=== PATIENT | male | born 2000 | race Caucasian/White ===

== ENCOUNTER 2020-06-26 11:25 | Emergency (ER) | payer BC, SELFPAY ==
[2020-06-26 11:40] VITALS: BP 147/76; PULSE 71; RESP 16; TEMP 36.9; O2SAT 96; BMI 35.9
--- NOTE | 2020-06-26 12:01 | HMH.EDUTC ---
[facility] [place] Disposition Clinical Impression: Viral URI with cough, Encounter for laboratory testing for COVID-19 virus Disposition: Home, Self-Care Condition on Discharge: Good Instructions: DI for COVID-19 (Suspected or Confirmed ), Coronavirus Disease 2019, Preventing the Spread of Coronavirus Discharge Instructions Additional Instructions: *Monitor Temp, Over the counter Motrin or Tylenol as directed/as needed Tylenol every 4 hours and Motrin every 6 hours (as long as your family doctor has told you that you can take it) for fever or pain. and straight to ER if unable to lower temp less than 101.0 after medication given *Warm salt water gargles may help to soothe the throat *Throat Lozenges *Warm fluids like tea with honey may help to soothe the throat *Sleep elevated *Humidifier/Vaporizer Your throat swab was sent for culture. Those results are typically sent to your primary care. Be sure to follow up in 2-3 days with your family doctor/primary care physician if no improvement so they can review those result and treat if necessary. If you don?t have a primary care doctor, I recommend you get one but in the mean time, you will have to return to a walk in clinic Follow up IMMEDIATELY for new or worsening symptoms or no Noticeable improvement over the next 48-72 hours. 911 for difficulty breathing or swallowing You were tested for today for COVID19 your test result should be back in the next 24-48 hours, you may call to the [facility] to see if your test results are back in the next 48 hours [phone] [facility] hours are 9am-9pm You was given a handout with instructions for Self Quarantine and Self isolation for while you wait on test results and what to do if they are positive If you are positive the Health Dept will be contacting you also Prescriptions: Brompheniramine/Pseudoephed/Dm [Bromfed Dm Cough Syrup] 5 - 10 ml PO Q46H PRN #150 ml PRN Reason: Cough Transmission Status: Pending to [facility] Referrals: PCP,No [Primary Care Provider] - As needed Forms: Work/School Release Time of Disposition: 12:14 Medical Decision Making - Dre Inquiry Pt receiving controlled substance: No Dre was queried for this patient: No Vital Signs: 06/26/20 11:40 Temperature 98.5 F Temperature Source Oral Pulse Rate [Left] 71 Respiratory Rate 16 Blood Pressure [Right Arm] 147/76 H Blood Pressure Mean [Right Arm] 99 Blood Pressure Source [Right Arm] Automatic Cuff Blood Pressure Position [Right Arm] Sitting 02 Sat by Pulse Oximetry 96 Oxygen Delivery Method Room Air - Lab Data Lab results reviewed: Yes: I reviewed the patient's lab results. Orders (Tests/Meds): ORDERS Category Date Time Status Covid-19 Nasal PCR ([facility]) Routine Lab 06/26/20 11:[address] [facility] [place] HPI - General Stated complaint: Covid Test; cough; sore thorat;SOB Time Seen by Provider: 06/26/20 12:01 Mode of Arrival: Ambulatory Source of Information: Patient Limitations: No Limitations Description of Symptoms (Recalled from Triage Doc. by RN): pt started having a sore throat two days ago. followed by chills, generalized weakness and muscle aches and LAUREANO. pt started having N/V today. 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
[2020-06-26 12:15] VITALS: BP 143/73; PULSE 68; RESP 16; TEMP 37
[2020-06-26 21:03] LABS: UTC Strep Screen (Rapid) Negative (Negative)
== END 2020-06-26 12:18 | disposition home or self-care (01) ==
PROVIDERS: Emergency Provider Nurse Practitioner
DX: Z20.822 Contact with and (suspected) exposure to COVID-19 (principal); J06.9 Acute upper respiratory infection, unspecified
CPT/HCPCS: 87880; 99202; G0463; U0003

== ENCOUNTER 2020-10-09 10:59 | Emergency (ER) | payer BC, SELFPAY ==
[2020-10-09 11:00] VITALS: BP 149/80; PULSE 84; RESP 19; TEMP 37.1; O2SAT 99; BMI 36.9
--- NOTE | 2020-10-09 11:15 | HMH.EDUTC ---
[facility] [place] Clinical Impression: Strep pharyngitis Bilateral otitis media Qualifiers: Otitis media type: suppurative Chronicity: acute Recurrence: non-recurrent Spontaneous tympanic membrane rupture: without spontaneous rupture Qualified Code(s): H66.003 - Acute suppurative otitis media without spontaneous rupture of ear drum, bilateral Disposition: Home, Self-Care Condition on Discharge: Good Instructions: DI for Strep Throat Additional Instructions: Complete antibiotics as prescribed. Replace toothbrush. Ibuprofen for pain or fever. Gatorade slushies or saltwater gargles for swelling. Referrals: Provider,Referral, [Primary Care Provider] - Time of Disposition: 11:23 Medical Decision Making - Dre Inquiry Pt receiving controlled substance: No Vital Signs: 10/09/20 11:00 Temperature 98.7 F Temperature Source Oral Pulse Rate [Right Brachial] 84 Respiratory Rate 19 Blood Pressure [Right Arm] 149/80 H Blood Pressure Mean [Right Arm] 103 Blood Pressure Source [Right Arm] Automatic Cuff Blood Pressure Position [Right Arm] Sitting 02 Sat by Pulse Oximetry 99 Oxygen Delivery Method Room Air - Lab Data Lab results reviewed: Yes: I reviewed the patient's lab results. [facility] [place] - General Stated complaint: sore throat, headache Time Seen by Provider: 10/09/20 11:16 Mode of Arrival: Ambulatory Source of Information: Patient Limitations: No Limitations Description of Symptoms (Recalled from Triage Doc. by RN): PATIENT C/O SORE THROAT, EAR ACHE, AND HEADACHE X 5 DAYS HEENT Symptoms (Recalled from RN notes): Yes Resp Symptoms (Recalled from RN notes): No Skin Symptoms (Recalled from RN notes): No MS Symptoms (Recalled from RN notes): No Functional Status (Recalled from RN notes): WNL - History of Present Illness Provider Complaint: Sore throat, headache, bilateral ear pain X 4-5 days. No fever. Onset (ago): day(s) (5) Relieving factors: none Exacerbating factors: none Treatments prior to arrival: none - Related Data Allergies Allergy/AdvReac Type Severity Reaction Status Date / Time No Known Allergies Allergy Verified 06/26/20 11:27 - Worker's Comp Is this a Worker's Comp case?: No [facility] History - Hepatitis A Screen Drug use history?: No High risk sexual behaviors?: No History of sexually transmitted infection?: No Currently employed?: No Childcare worker?: No Do you have indoor plumbing?: Yes Do you have electricity?: Yes Attestation statement:: This patient has been screened for Hepatitis A risk factors. I have reviewed the patient's past medical history: Yes Medical History: Denies:: Asthma, Chronic Obstructive Pulmonary Disease (COPD), Diabetes Mellitus Type 1, Diabetes Mellitus Type 2, Hypertension Laterality Cases: Bilateral: Myringotomy (Ear Tubes), Tonsillectomy - Social History Smoking Status: Unknown if ever smoked Tobacco Type: smokeless tobacco # Packs/Day (cigarettes): 0 Alcohol Intake: never Substance Use Type: denies use Occupational Status: other Household Members: family ROS Obtained: Yes All systems reviewed & no additional complaints - ENT Ears, Nose, Mouth, and Throat: Reports otalgia, Reports sore throat Physical Exam - General General appearance: alert, in no apparent distress - Head Head exam: normocephalic - Eye Eye exam: Present: PERRL - Expanded ENT Exam TM/Canal exam: Bilateral TM: erythema Nose exam: Absent: sinus tenderness Throat exam: Present: tonsillar erythema, tonsillomegaly, tonsillar exudate, muffled voice - Neck Neck exam: Present: lymphadenopathy - Respiratory Respiratory exam: Present: normal lung sounds bilaterally - Cardiovascular Cardiovascular exam: Present: regular rate, normal rhythm - Neurological Exam Neurological exam: Present: alert, oriented X3 - Psychiatric Psychiatric exam: Present: normal affect, normal mood - Skin Skin exam: Present: warm, dry, intact
[2020-10-09 11:25] LABS: UTC Strep Screen (Rapid) Positive (Negative)
[2020-10-09 11:27] VITALS: BP 149/80; PULSE 84; RESP 19; TEMP 37.1; O2SAT 99
== END 2020-10-09 11:30 | disposition home or self-care (01) ==
PROVIDERS: Emergency Provider Physician Assistant
DX: J02.0 Streptococcal pharyngitis (principal); H66.003 Acute suppurative otitis media without spontaneous rupture of ear drum, bilateral
CPT/HCPCS: 87880; 96372; 99202; G0463; J0561

== ENCOUNTER 2023-07-21 11:20 | Emergency (ER) | payer BC, SELFPAY ==
[2023-07-21 11:45] VITALS: BP 135/76; PULSE 72; RESP 18; TEMP 37.2; O2SAT 100; BMI 38.5
[2023-07-21 12:09] LABS: UTC Influenza A Antigen Negative (Negative); UTC Strep Screen (Rapid) Negative (Negative)
[2023-07-21 12:10] LABS: UTC Influenza B Antigen Negative (Negative)
--- NOTE | 2023-07-21 12:12 | ED_ITS ---
Discharge Plan Disposition Patient Disposition: Home, Self-Care Condition: Good Prescriptions Prescriptions: New amoxicillin [amoxicillin] 875 mg tablet 875 mg PO Q12H Qty: 20 0RF methylprednisolone 4 mg Tablets,Dose Pack 4 mg PO DIRECTED 6 Days Qty: 21 0RF Rx Instructions: Take 1 pack as directed for 6 days mbzahylgvyqbamu-sattgtibe-AM [Bromfed DM] 2-30-10 mg/5 mL Syrup 5 ml PO Q6H PRN (Reason: Cough) Qty: 240 0RF Referrals Follow up/Referrals: Provider,Referral, MD [Primary Care Provider] - See instructions Activity Restrictions/Add. Instructions Additional Instructions/Restrictions: Drink plenty of fluids. Take tylenol or ibuprofen for pain or fever. Take the medications as directed. Follow up with your regular doctor. GO TO THE ER FOR ANY WORSENING SYMPTOMS Clinical Impressions Clinical Impression: Pharyngitis Stand Alone Forms Stand Alone Forms: Work/School Release Instructions Patient Instructions: DI for Pharyngitis/Tonsillopharyngitis -- Adult, Sore Throat Discharge ED Provider: Alistair Black [facility] General Stated complaint: sore throat, body aches Mode of Arrival: Ambulatory Source of Information: Patient Limitations: No Limitations Time Seen by Provider: 07/21/23 12:12 Description of Symptoms (Recalled from Triage Doc. by RN): PATIENT C/O SORE THROAT, BODY ACHES, AND COUGH SINCE YESTERDAY. RECENTLY EXPOSED TO STREP HEENT Symptoms (Recalled from RN notes): Yes Resp Symptoms (Recalled from RN notes): Yes Skin Symptoms (Recalled from RN notes): No MS Symptoms (Recalled from RN notes): No Functional Status (Recalled from RN notes): WNL History of Present Illness Provider Complaint: He states that he has had sore throat, body aches and malaise for the past 2 days. He was exposed to strep throat thru his coworker having it. Related Data Previous Rx's Medication Instructions Recorded amoxicillin 875 mg tablet 875 mg PO Q12H #20 tabs 07/21/23 mdtrucveymgkwsh-gtgdhzejcwjjexp-EC 5 ml PO Q6H PRN Cough #240 mL 07/21/23 2 mg-30 mg-10 mg/5 mL oral syrup (Bromfed DM) methylprednisolone 4 mg tablets in 4 mg PO DIRECTED 6 days #21 tabs 03/01/24 a dose pack Allergies Allergy/AdvReac Type Severity Reaction Status Date / Time No Known Allergies Allergy Verified 06/26/20 11:27 Worker's Comp Is this a Worker's Comp case?: No [facility] Disclaimer: The information contained in this section may have been updated after the pat ient was seen, as this information can be updated by other users. Surgical History (Updated 07/21/23 @ 12:02 by Nallely Khoury RN) History of tonsillectomy History of tympanostomy tube placement Social History Smoking Status: Unknown if ever smoked second hand exposure: No alcohol intake: never substance use type: denies use current occupational status: other Travel in the last 8 weeks: None household members: family ROS Obtained: Yes All systems reviewed & no additional complaints except as documented Constitutional Constitutional: Reports chills and Reports fever(s) Eyes Eyes: Denies eye discharge ENT Ears, Nose, Mouth, and Throat: Reports as per HPI Cardiovascular Cardiovascular: Denies chest pain Respiratory Respiratory: Denies chest congestion and Reports cough Gastrointestinal Gastrointestingal: Reports nausea; Denies abdominal pain, constipation, cramping, diarrhea or vomiting Musculoskeletal Musculoskeletal: Denies arthralgias Integumentary/Breasts Skin/Breast: Denies rash Neurologic Neurologic: Denies paresthesias Physical Exam General General appearance: alert and in no apparent distress Head Head exam: atraumatic, normocephalic and normal inspection Eye Eye exam: Present normal appearance, PERRL and EOMI ENT ENT exam: Present mucous membranes moist and normal external ear exam Expanded ENT Exam TM/Canal exam: Bilateral TM: erythema and bulging Nose exam: Absent sinus tenderness Mouth exam: Present normal external inspection; Absent drooling Teeth exam: Present normal inspection Throat exam: Present tonsillar erythema, tonsillomegaly and tonsillar exudate Neck Neck exam: Present normal inspection, full ROM and trachea midline; Absent tenderness, meningismus or lymphadenopathy Chest Chest inspection: Present normal inspection and symmetric chest wall rise; Absent tenderness Respiratory Respiratory exam: Present normal lung sounds bilaterally; Absent respiratory distress, wheezes or stridor Cardiovascular Cardiovascular exam: Present regular rate and normal rhythm; Absent systolic murmur or diastolic murmur Abdominal Exam Abdominal exam: Present soft and normal bowel sounds; Absent distention, tenderness, guarding, rebound or rigidity Extremities Exam Extremities exam: Present normal inspection and normal capillary refill; Absent calf tenderness Back Exam Back exam: Present normal inspection and full ROM; Absent tenderness, CVA tenderness (R) or CVA tenderness (L) Neurological Exam Neurological exam: Present alert, oriented X3 and CN II-XII intact Psychiatric Psychiatric exam: Present normal affect and normal mood Skin Skin exam: Present warm, dry, intact and normal color Medical Decision Making Medical Records Medical records reviewed: No I reviewed the patient's medical records. Dre Inquiry Pt receiving controlled substance: No Vital Signs: 07/21/23 11:45 Temperature 99.0 F Temperature Source Oral Pulse Rate [Left Brachial] 72 Respiratory Rate 18 Blood Pressure [Left Arm] 135/76 Blood Pressure Mean [Left Arm] 95 Blood Pressure Source [Left Arm] Automatic Cuff Blood Pressure Position [Left Arm] Sitting 02 Sat by Pulse Oximetry 100 Oxygen Delivery Method Room Air Lab Data Lab results reviewed: Yes I reviewed the patient's lab results. Lab Results 07/21/23 11:45: Influenza Type A Ag Negative, Influenza Type B Ag Negative, Strep Scn Rapid Clinic Negative Orders (Tests/Meds): ORDERS Category Date Time Status Strep Screen Confirmation Stat Micro 07/21/23 11:45 Received
[2023-07-21 12:19] VITALS: BP 135/76; PULSE 72; RESP 18; TEMP 37.2; O2SAT 100
== END 2023-07-21 12:55 | disposition home or self-care (01) ==
PROVIDERS: Emergency Provider Nurse Practitioner Family
DX: J02.9 Acute pharyngitis, unspecified (principal); R53.81 Other malaise; M79.18 Myalgia, other site; Z20.818 Contact with and (suspected) exposure to other bacterial communicable diseases
CPT/HCPCS: 87804; 87880; 99212; 99214; G0463

== ENCOUNTER 2024-03-10 10:39 | Emergency (ER) | payer SELFPAY ==
[2024-03-10 11:21] VITALS: BP 128/69; PULSE 93; RESP 18; TEMP 37; O2SAT 96; BMI 38.5
--- NOTE | 2024-03-10 11:27 | EXP.UTC ---
Discharge Plan Disposition Patient Disposition: Home, Self-Care Condition: Good Prescriptions Prescriptions: New prednisone 10 mg tablet 10 mg PO BID 3 Days Qty: 6 0RF amoxicillin 250 mg/5 mL suspension for reconstitution 250 mg PO BID Qty: 100 0RF lrvnaiapbcwagpu-rjajlijzt-DG [Bromfed DM] 2-30-10 mg/5 mL Syrup 5 ml PO Q6H PRN (Reason: Cough) Qty: 240 0RF Referrals Follow up/Referrals: Provider,Referral, MD [Primary Care Provider] - See instructions Activity Restrictions/Add. Instructions Additional Instructions/Restrictions: Drink plenty of fluids. Take tylenol or ibuprofen for pain or fever. Take the medications as directed. Follow up with your regular doctor. GO TO THE ER FOR ANY WORSENING SYMPTOMS Clinical Impressions Clinical Impression: Pharyngitis, Acute viral syndrome Instructions Patient Instructions: Sore Throat, DI for Pharyngitis/Tonsillopharyngitis -- Adult Print Language Print Language: Yoruba Discharge ED Provider: Alistair Black [facility] General Stated complaint: body aches, sore throat, head pressure, Mode of Arrival: Ambulatory Source of Information: Patient Time Seen by Provider: 03/10/24 11:26 Description of Symptoms (Recalled from Triage Doc. by RN): SORE THROAT, BODY ACHES, SINUS PRESSURE HEENT Symptoms (Recalled from RN notes): Yes Resp Symptoms (Recalled from RN notes): Yes Skin Symptoms (Recalled from RN notes): No MS Symptoms (Recalled from RN notes): No Functional Status (Recalled from RN notes): WNL History of Present Illness Provider Complaint: He states that for the past 2 days he has had a very sore throat, chest congestion, cough, and malaise. Related Data Previous Rx's ?Medication ?Instructions ?Recorded amoxicillin 250 mg/5 mL oral 250 mg (5 mL) PO BID #100 mL 03/10/24 suspension xyvihmbpfirmwaj-yuqaijtecagtwzz-OD 5 ml PO Q6H PRN Cough #240 mL 03/10/24 2 mg-30 mg-10 mg/5 mL oral syrup (Bromfed DM) prednisone 10 mg tablet 10 mg PO BID 3 days #6 tabs 03/10/24 Allergies Allergy/AdvReac Type Severity Reaction Status Date / Time No Known Allergies Allergy Verified 06/26/20 11:27 Worker's Comp Is this a Worker's Comp case?: No [facility] Disclaimer: The information contained in this section may have been updated after the patient was seen, as this information can be updated by other users. Surgical History (Updated 07/21/23 @ 12:02 by Nallely Khoury RN) History of tympanostomy tube placement History of tonsillectomy Social History Smoking Status: Unknown if ever smoked second hand exposure: No alcohol intake: never substance use type: denies use current occupational status: other Travel in the last 8 weeks: None household members: family ROS Obtained: Yes All systems reviewed & no additional complaints except as documented Constitutional Constitutional: Reports poor appetite Eyes Eyes: Reports system reviewed and no additional complaints, except as documented ENT Ears, Nose, Mouth, and Throat: Reports as per HPI Cardiovascular Cardiovascular: Reports system reviewed and no additional complaints, except as documented and Denies chest pain Respiratory Respiratory: Denies shortness of breath, Reports chest congestion, Reports cough, Denies stridor and Denies wheezing Gastrointestinal Gastrointestingal: Reports system reviewed and no additional complaints, except as documented; Denies abdominal pain, diarrhea or vomiting Musculoskeletal Musculoskeletal: Reports system reviewed and no additional complaints, except as documented and Denies arthralgias Integumentary/Breasts Skin/Breast: Reports system reviewed and no additional complaints, except as documented and Denies rash Neurologic Neurologic: Denies paresthesias Allergic/Immunologic Allergic/Immunologic: Denies wheezing Physical Exam General General appearance: alert and in no apparent distress Head Head exam: atraumatic, normocephalic and normal inspection Eye Eye exam: Present normal appearance, PERRL and EOMI ENT ENT exam: Present mucous membranes moist and normal external ear exam Expanded ENT Exam TM/Canal exam: Bilateral TM: erythema and bulging Nose exam: Absent sinus tenderness Mouth exam: Present normal external inspection; Absent drooling Teeth exam: Present normal inspection Throat exam: Present tonsillar erythema, tonsillomegaly and tonsillar exudate Neck Neck exam: Present normal inspection, full ROM and trachea midline; Absent tenderness, meningismus or lymphadenopathy Chest Chest inspection: Present normal inspection and symmetric chest wall rise; Absent tenderness Respiratory Respiratory exam: Present normal lung sounds bilaterally; Absent respiratory distress, wheezes, stridor or accessory muscle use Cardiovascular Cardiovascular exam: Present regular rate and normal rhythm; Absent systolic murmur or diastolic murmur Abdominal Exam Abdominal exam: Present soft and normal bowel sounds; Absent distention, tenderness, guarding, rebound or rigidity Extremities Exam Extremities exam: Present normal inspection and normal capillary refill; Absent calf tenderness Back Exam Back exam: Present normal inspection and full ROM; Absent tenderness, CVA tenderness (R) or CVA tenderness (L) Neurological Exam Neurological exam: Present alert, oriented X3 and CN II-XII intact Psychiatric Psychiatric exam: Present normal affect and normal mood Skin Skin exam: Present warm, dry, intact and normal color Medical Decision Making Medical Records Medical records reviewed: No I reviewed the patient's medical records. Screening: Per USPSTF and CDC recommendations, given the prevalence of disease in our region, it is our hospital?s policy to screen for HIV and viral Hepatitis for all patients aged 18 and over and those with ongoing risk factors. Dre Inquiry Pt receiving controlled substance: No Vital Signs: 03/10/24 11:21 Temperature 98.6 F Temperature Source Oral Pulse Rate [Right Brachial] 93 H Respiratory Rate 18 Blood Pressure [Left Arm] 128/69 Blood Pressure Mean [Left Arm] 88 02 Sat by Pulse Oximetry 96 Lab Data Lab results reviewed: Yes I reviewed the patient's lab results.
[2024-03-10 11:29] LABS: UTC Strep Screen (Rapid) Negative (Negative)
[2024-03-10 11:49] VITALS: BP 128/69; PULSE 93; RESP 20; TEMP 37
== END 2024-03-10 11:50 | disposition home or self-care (01) ==
PROVIDERS: Emergency Provider Nurse Practitioner Family
DX: J02.9 Acute pharyngitis, unspecified (principal); B34.9 Viral infection, unspecified
CPT/HCPCS: 87635; 87880; 99213; G0381

== ENCOUNTER 2025-02-10 15:38 | Emergency (ER) | payer OTHER, SELFPAY ==
[2025-02-10 16:02] VITALS: BP 137/69; PULSE 56; RESP 14; TEMP 36.8; O2SAT 98; BMI 38.4
--- OUTSIDE RECORDS SUMMARY | 2025-02-10 16:17 | XMS_ITS | Clinical Summary ---
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 Not on file 01/2023 Does Anyone Keep You from Co ntacting Others or Doint Things Outside the Home? Not on file 02/27/2023 Physical Sign of Abuse Present Not on file 1 Housing Stability Answer Date Recorded Current Living Arrangements Not on file 01/2023 Potentially Unsafe Housing Conditions Not on benito e 02/27/2023 Family and Community Support Answer Braeden e Recorded Help with Day-to-Day Activities Not on file 02/27/2023 Lonely or Isolated Not on file 02/27/2023 Employment Answer Date Recorded Do you want help finding or keeping work or a mirian b? Not on file 02/27/2023 Disabilities Answer Date Recorded Concentrating, Remembering, or Making Decisions Difficulty Not on file 02/27/2023 Doing Errands Independently Difficulty Not on fi le 02/27/2023 Education Answer Date Recorded Help with school or training? Not on file Preferred Language Not on file 02/27/2023 Sex and Gender Information Value Date Recorded Sex Assigned at Not on file Legal Sex Male 4:14 PM EDT Gender Identity Not on file Sexual Orientation Not on file Plan of Treatment Health Maintenance Due Date Last Done Comments ANNUAL PHYSICAL 12/15/2017 HEPATITIS C SCREENING 12/15/2017 TDAP/TD VACCINES (1 - Tdap) 2019 INFLUENZA VACCINE 12/20/2024 MENINGOCOCCAL B VACCINE Aged Out No l onger eligible based on patient's age to complete this topic Pneumococcal Vaccine 0-49 Aged Out No longer eligible based on patient's age to complete this topic Care Teams Tilt Tray Driver Relationship Specialty Start Date End Date Provider, [place] [address] PCP - General 12/15/17
--- OUTSIDE RECORDS SUMMARY | 2025-02-10 16:17 | XMS_ITS | Clinical Summary ---
Author Organization Healthcare Address [address] [place] [address] Care Team Providers Care Automotive Painter Name Role Phone Unavailable Primary Care Provider Unavailabl e Family History Medical History Relation Name Comments Hypertension Father Hyperlipidemia Mother Thyroid disease Mother Relation Name Status Comments Father Mother Social History Tobacco Use Types Packs/Day Years Used Date Smoking Tobacco: Never Sex and Gender Information Value Date Recorded Sex Assigned at Not on file Legal Sex Male 7:12 PM EDT Gender Identity Not on file Sexual Orientation Not on file Last Filed Vital Signs Vital Sign Reading Time Taken Comments Blood Pressure 143/77 03/20/2018 7:36 AM EDT Pulse - - Temperature - - Respiratory Rate - - Oxygen Saturation - - Inhaled Oxygen Concentration - - Weight 109 kg (239 lb 6.7 oz) 03/20/2018 7:36 AM EDT Height 177.8 cm (5' 10 ) 03/20/2018 7:36 AM EDT Body Mass Index 34.35 03/20/2018 7:36 AM EDT Plan of Treatment Not on file
--- NOTE | 2025-02-10 16:24 | ED_ITS ---
Discharge Plan Disposition Patient Disposition: Home, Self-Care Prescriptions Prescriptions: New penicillin V potassium 500 mg tablet 500 mg PO BID 10 Days Qty: 20 0RF No Action prednisone 10 mg tablet 10 mg PO BID 3 Days Qty: 6 0RF amoxicillin 250 mg/5 mL suspension for reconstitution 250 mg PO BID Qty: 100 0RF rddfzdizqqpuete-rpqnozmtn-IK [Bromfed DM] 2-30-10 mg/5 mL Syrup 5 ml PO Q6H PRN (Reason: Cough) Qty: 240 0RF Referrals Follow up/Referrals: Ina Gomez APRN [Primary Care Provider, Medical] - See instructions Activity Restrictions/Add. Instructions Additional Instructions/Restrictions: You have inflammation and swelling of your uvula. This can be from a viral cause or bacterial cause. I prescribed you a course of antibiotics. Take this as prescribed. You were given steroids here which should help with the swelling and inflammation. Use the Magic mouthwash as prescribed for comfort. You can also take Tylenol and ibuprofen. If you develop any new or worsening symptoms, such as difficulty breathing, difficulty swallowing, worsening muffled voice, or if you become concerned for your health for any reason, return to the emergency department for evaluation. Clinical Impressions Clinical Impression: Uvulitis Print Language Print Language: Iranian Discharge ED Provider: Jerome Odell Adult HPI General Chief complaint: Sore Throat Stated complaint: Something Stuck in throat; Swollen Time Seen by Provider: 02/10/25 16:15 Mode of Arrival: Ambulatory Source of Information: Patient Description of Symptoms (Recalled from ER Triage Doc. by RN): pt states he woke up this am with a sore throat. pt reports he is unable to tolerate PO intake. He states it feels like he is constantly choking. pt is able to bring forward a piece of tissue that is red and is similar to what a dime size ball would be. It appears to be an air filled blister. pt has a hx of a T&A. pt is afebrile. pt denies any other symptoms. History of Present Illness HPI narrative: Chino Jo is a 24y male with no significant past medical history who presents to the emergency department for complaints of sore throat and feeling of something swollen in the back of his throat. Patient states that he was feeling normal yesterday and then woke up today with pain in the back of his throat and has something hanging down that is painful and swollen. He does report that anytime he eats or drinks, it causes him to gag and almost vomit. He has not had any fevers. He states that this has happened a couple times in the past but usually goes away on its own but it has persisted throughout the day. He denies any shortness of breath and is tolerating his secretions. He has no other medical complaints or concerns. Related Data Previous Rx's ?Medication ?Instructions ?Recorded amoxicillin 250 mg/5 mL oral 250 mg (5 mL) PO BID #100 mL 03/10/24 suspension gwqeamkurjsskln-thuugckzdrxryav-MO 5 ml PO Q6H PRN Cou gh #240 mL 03/10/24 2 mg-30 mg-10 mg/5 mL oral syrup (Bromfed DM) prednisone 10 mg tablet 10 mg PO BID 3 days #6 tabs 03/10/24 penicillin V potassium 500 mg 500 mg PO BID 10 days #2 0 tabs 02/10/25 tablet Allergies Allergy/AdvReac Type Severity Reaction Status Date / Time No Known Allergies Allergy Verified 02/10/25 16:10 [facility] Disclaimer: The information contained in this section may have been updated after the patient was seen, as this information can be updated by other users. Surgical History (Updated 07/21/23 @ 12:02 by Nallely Khoury RN) History of tympanostomy tube placement History of tonsillectomy Social History Smoking Status: Current every day smoker tobacco type: smokeless tobacco second hand exposure: No alcohol intake: never substance use type: denies use current occupational status: other Travel in the last 8 weeks?: None household members: family Have you lived/traveled outside [place] in past 30 days?: No Contact w/someone who lives/traveled outside [place] past 30 days?: No Exposure to someone with infectious disease in past 14 days?: No Do you have a fever (greater than 100.4 F or 38 C)?: No Have you tested positive for COVID-19?: No Exposed to someone with COVID-19 in past 14 days?: No Do you have a sore throat?: No Do you have a cough?: No Do you have any weakness?: No Do you have any diarrhea?: No Are you experiencing any unusual bleeding?: No Do you have any muscle aches/pain?: No Do you have any abdominal pain?: No Are you experiencing loss of taste or smell?: No ROS Obtained: Yes Systems reviewed as appropriate & no additional complaints except as documented Physical Exam General General appearance: alert and in no apparent distress Head Head exam: atraumatic Eye Eye exam: Present normal appearance ENT ENT exam: Present normal external ear exam Expanded ENT Exam Open Mouth Image: 2 1. Swelling, erythema. Posterior oropharyngeal erythema without tonsillar swelling or exudates Neck Neck exam: Present full ROM Chest Chest inspection: Present symmetric chest wall rise Respiratory Respiratory exam: Present normal lung sounds bilaterally; Absent respiratory distress Cardiovascular Cardiovascular exam: Present regular rate and normal rhythm Abdominal Exam Abdominal exam: Present soft exam: Present deferred Extremities Exam Extremities exam: Present normal inspection Back Exam Back exam: Present normal inspection Neurological Exam Neurological exam: Present alert and oriented X3 Psychiatric Psychiatric exam: Present normal affect Skin Skin exam: Present warm and dry Medical Decision Making Medical Records Screening: Per USPSTF and CDC recommendations, given the prevalence of disease in our region, it is our hospital?s policy to screen for HIV and viral Hepatitis for all patients aged 18 and over and those with ongoing risk factors. Dre Inquiry Pt receiving controlled substance: No Vital Signs: 02/10/25 16:02 Temperature 98.2 F Temperature Source Oral Pulse Rate [Left] 56 L Respiratory Rate 14 Blood Pressure [Right Arm] 137/69 Blood Pressure Mean [Right Arm] 91 Blood Pressure Source [Right Arm] Automatic Cuff Blood Pressure Position [Right Arm] Sitting 02 Sat by Pulse Oximetry 98 Oxygen Delivery Method Room Air Lab Data Lab Results 02/10/25 16:22: Group A Strep Rapid Negative Orders (Tests/Meds): ED MEDICATIONS Generic Name Dose Route Start Last Admin Trade Name Freq PRN Reason Stop Dose Admin Tetracycl/Hydrocort/Nystatin/Diphen 15 ml 02/10/25 21:00 Magic Mouthwash 300ml Bottle PO 03/12/25 20:59 QID DM Discontinued Medications Generic Name Dose Route Start Last Admin Trade Name Freq PRN Reason Stop Dose Admin Acetaminophen 1,000 mg 02/10/25 16:22 02/10/25 16:51 Acetaminophen 500mg Tab PO 02/10/25 16:23 1,000 mg ONCE ONE Administration Dexamethasone 10 mg 02/10/25 16:22 02/10/25 16:51 Dexamethasone 1mg/1ml Intensol 10ml Udc (Er) PO 02/10/25 16:23 10 mg ONCE ONE Administration Ibuprofen 600 mg 02/10/25 16:22 02/10/25 16:51 Ibuprofen 600 Mg Tablet PO 02/10/25 16:23 600 mg ONCE ONE Administration Tetracycl/Hydrocort/Nystatin/Diphen 15 ml 02/10/25 16:24 02/10/25 16:51 Magic Mouthwash 300ml Bottle PO 02/10/25 16:25 15 ml ONCE ONE Administration ORDERS Category Date Time Status Rapid Strep Scrn Group A [Strep Scrn Group A (Rapid)] Lab 02/10/25 16:22 Completed Stat Strep Screen Confirmation Stat Micro 02/10/25 16:22 Received Medical Decision Narrative: Chino Jo is a 24y male with no significant past medical history who presents to the emergency department for complaints of sore throat and feeling of something swollen in the back of his throat. Patient states that he was feeling normal yesterday and then woke up today with pain in the back of his throat and has something hanging down that is painful and swollen. He does report that anytime he eats or drinks, it causes him to gag and almost vomit. He has not had any fevers. He states that this has happened a couple times in the past but usually goes away on its own but it has persisted throughout the day. He denies any shortness of breath and is tolerating his secretions. He has no other medical complaints or concerns. On arrival, patient is afebrile, hemodynamically stable, breathing comfortably on room air, oxygen saturation 98% SpO2. Physical exam, stated above, reveals an overall well-appearing male in no respiratory distress. He speaking in full sentences. He is tolerating his secretions well. Oropharyngeal exam shows swelling and erythema to the uvula, however this is not causing obstruction of the airway. He does have posterior oropharyngeal erythema as well but no significant tonsillar swelling or exudates. Physical exam is otherwise unremarkable. Differential diagnosis includes, but is not limited to: Uvulitis, strep pharyngitis, low concern for peritonsillar abscess or retropharyngeal abscess based on physical exam and patient not having a muffled voice and is maintaining his airway appropriately. CT imaging of soft tissue is of the neck were considered, however is felt that these are not indicated at this time as it would not change ED management and there is low concern for abscess. Will obtain strep swab and administer 10 mg of oral dexamethasone, Magic mouthwash, ibuprofen and Tylenol for pain. On reassessment, patient's strep swab is negative, however we will send for culture. On reassessment, patient remains in stable condition. He had some relief with Magic mouthwash, Tylenol and ibuprofen. He remained stable. Will treat patient with penicillin given concern for possible strep infection even in the absence of rapid strep screen positivity. However, this could be viral in nature. There is low concern for angioedema at this time. Patient will be discharged with Magic mouthwash instructions take Tylenol and ibuprofen he was given strict return precautions for any worsening breathing, swelling, difficulty swallowing or tolerating secretions. All questions were answered. He demonstrated understanding and was in agreement with this plan. He was then discharged from the emergency department in stable condition. Critical Care Critical Care Time Critical Care Time: No
[2025-02-10] MEDS: MAGIC MOUTHWASH 300ML BOTTLE 15 ML PO (16:51)
[2025-02-10] MEDS: ACETAMINOPHEN 500MG TAB 1000 MG PO (16:51)
[2025-02-10] MEDS: DEXAMETHASONE 1MG/1ML INTENSOL 10ML UDC (ER) 10 MG PO (16:51)
[2025-02-10] MEDS: IBUPROFEN 600 MG TABLET PO (16:51)
--- NOTE | 2025-02-10 17:13 | PC.NURSE ---
I called lab to inquire about the pts strep results. Kierra states it is being resulted at this time.
[2025-02-10 17:16] LABS: Strep Scrn Group A (Rapid) Negative (Negative)
[2025-02-10 17:33] VITALS: BP 144/81; PULSE 62; RESP 16; TEMP 36.6; O2SAT 99
== END 2025-02-10 17:44 | disposition home or self-care (01) ==
PROVIDERS: Emergency Provider Student in an Organized Health Care Education/Training Program; PCP Nurse Practitioner Family
DX: R09.A2 Foreign body sensation, throat (principal); K12.2 Cellulitis and abscess of mouth; F17.290 Nicotine dependence, other tobacco product, uncomplicated
CPT/HCPCS: 87430; 99283